=== PATIENT | female | born 1975 | race Two or more races ===

== ENCOUNTER 2016-11-26 11:47 | Day surgery (SDC) | payer OTHER ==
[2016-11-22 13:06] VITALS: BMI 20.2
[~2016-11-26 11:47] MED LIST: LACTATED RINGERS 1,000 ML IV SCH; LIDOCAINE 1% 20 ML VIAL (10MG/ML) FOR IV START INTRADERMA PRN
[2016-11-26 12:43] VITALS: RESP 16; TEMP 97.9
[2016-11-26] MEDS ORDERED: LIDOCAINE 1% 20 ML VIAL (10MG/ML) FOR IV START INTRADERMA ONE (12:52)
[2016-11-26] MEDS ORDERED: PROPOFOL 10 MG/ML 20 ML VIAL IV ONE (13:41)
[2016-11-26] MEDS ORDERED: LIDOCAINE 1% INJ 10MG/ML (20 ML MDV) ONE (13:41)
[2016-11-26 15:00] VITALS: BP 92/57; PULSE 71
--- NOTE | 2016-11-26 15:24 | P.PCN ---
Date of Procedure: 11/26/16 Preoperative Diagnosis: Postoperative Diagnosis: Procedure(s) Performed: Procedure: Total colonoscopy. Preoperative diagnosis: Screening for neoplasia, patient has family history of colon cancer. Postoperative diagnosis: Exam within normal limits. Preparation: HalfLytely prep. Sedation: Was provided by anesthesia. Brief clinical history: The patient is a 41-year-old female who is referred for this evaluation for screening for neoplasia age being his risk factor as well as family history of colon cancer in 2 uncles on his side of the family. The patient has no abdominal complaints, bleeding or anemia. This would be her first colonoscopy. Procedure: With the patient on her left lateral decubitus position and after informed consent and adequate sedation, the perianal area was inspected and it did not show any fissures or fistulas. There were no masses felt on digital rectal examination. The Olympus CFQ 160L video colonoscope was then inserted in the rectum in the usual fashion and advanced to the cecum. The mucosa appeared healthy. No abnormalities were seen including any polyps or diverticular disease. I retroflexed the endoscope in the rectum before the endoscope was withdrawn. The patient tolerated the procedure well. Plan: The patient was reassured. With her family history, I recommended repeat exam in 5 years. She will follow up with you as planned. Implants: Indications for Procedure: Operative Findings: Description of Procedure:
== END 2016-11-26 14:35 | disposition home or self-care (01) ==
LOC: ORWHC2ENDO 11:47
DX: Z12.11 Encounter for screening for malignant neoplasm of colon (principal); Z80.0 Family history of malignant neoplasm of digestive organs; F17.200 Nicotine dependence, unspecified, uncomplicated; F32.9 Major depressive disorder, single episode, unspecified; Z79.899 Other long term (current) drug therapy
CPT/HCPCS: 81025; J2001; J2704; G0105

== ENCOUNTER → 2017-04-25 | Outpatient (CLI) | payer OTHER ==
--- NOTE | 2017-04-25 14:36 | CT ---
EXAMINATION TYPE: CT abdomen wo con DATE OF EXAM: 04/25/2017 COMPARISON: NONE HISTORY: Abnornal findings on previous US report CT DLP: 150.60 mGycm Automated exposure control for dose reduction was used. TECHNIQUE: Helical acquisition of images was performed from the lung bases through the top of iliac crest to include entire abdomen. CONTRAST: Performed with Oral Contrast and without IV contrast. FINDINGS: LUNG BASES: No significant abnormality is appreciated. LIVER/GB: No significant abnormality is appreciated. PANCREAS: No significant abnormality is seen. SPLEEN: No significant abnormality is seen. ADRENALS: No significant abnormality is seen. KIDNEYS: No significant abnormality is seen. BOWEL: No significant abnormality is seen. Retained fecal debris throughout the colon. Appendix not visualized. Stomach is decompressed and limited in assessment for wall thickness. LYMPH NODES: No significant abnormality is appreciated. OSSEOUS STRUCTURES: No significant abnormality is seen. OTHER: Just superior and to the left of the umbilicus is a area of asymmetric soft tissue prominence which appears fat attenuation likely related to a small lipoma. Previous breast implant surgery noted . Findings suggest a uterine calcification. IMPRESSION: CORRELATE FOR SUBCUTANEOUS SOFT TISSUE LIPOMA MEASURING APPROXIMATELY 1.9 CM JUST SUPERIOR AND TO THE LEFT OF THE UMBILICUS. THIS CAN BE CORRELATED WITH MRI FOR FURTHER ASSESSMENT AND CHARACTERIZATION T O EXCLUDE ATYPICAL LIPOMA CLINICALLY WARRANTED. STOMACH LIMITED IN ASSESSMENT DUE TO DECOMPRESSION. WALL THICKNESS SLIGHTLY PROMINENT WHICH MAY BE RE LATED TO INCOMPLETE DISTENTION CORRELATE CLINICALLY TO EXCLUDE OTHER ETIOLOGIES.
== END | disposition home or self-care (01) ==
LOC: RADCTMAIN 12:11
PROVIDERS: ATTEND Internal Medicine Gastroenterology
DX: R93.5 Abnormal findings on diagnostic imaging of other abdominal regions, including retroperitoneum (principal); D17.39 Benign lipomatous neoplasm of skin and subcutaneous tissue of other sites
CPT/HCPCS: 74150